=== PATIENT | male | born 1995 | race Caucasian/White ===

== ENCOUNTER 2022-09-02 11:53 | Emergency (ER) | payer OTHER ==
[~2022-09-02] VITALS: Ht 185.4 cm; Wt 110.0 kg
[2022-09-02] MEDS ORDERED: HYDROcodone/acetaminophen 5mg/325mg tablet PO ONE ×2 (12:15→13:37)
[2022-09-02] MEDS ORDERED: ketorolac trometh inj. 60 MG/2 ML VIAL IM ONE (12:25)
[2022-09-02] MEDS ORDERED: HYDR-3965 PO (13:31)
[2022-09-02 14:42] VITALS: BP 110/62
== END 2022-09-02 14:45 | disposition home or self-care (01) ==
LOC: ER 11:53
DX: S76.311A Strain of muscle, fascia and tendon of the posterior muscle group at thigh level, right thigh, initial encounter (principal); Z79.899 Other long term (current) drug therapy; S76.301A Unspecified injury of muscle, fascia and tendon of the posterior muscle group at thigh level, right thigh, initial encounter; X58.XXXA Exposure to other specified factors, initial encounter; Y93.89 Activity, other specified; Y92.89 Other specified places as the place of occurrence of the external cause; Y99.8 Other external cause status
CPT/HCPCS: 96372; 99284; J1885